=== PATIENT | female | born 1970 | race Asian ===

== ENCOUNTER 2017-01-04 02:09 | Emergency (ER) | payer SELFPAY ==
[2017-01-04] MEDS ORDERED: Sodium Chloride 0.9% 1,000 ML IV ONE (02:51)
[2017-01-04 03:07] LABS: % BASOPHILS 0.7 % (0.0-2.0); % EOSINOPHILS 0.9 % (0.0-5.0); % LYMPHOCYTES 30.2 % (20.0-50.0); % MONOCYTES 5.1 % (2.0-10.0); % NEUTROPHILS 63.1 % (40.0-80.0); HEMATOCRIT 37.7 % (41.0-60); HEMOGLOBIN 13.4 gm/dL (12-16); MEAN CELL VOLUME 85.9 fl (81-100); MEAN CORPUSCULAR HEMOGLOBIN 30.4 pg (27.0-31.0); MEAN CORPUSCULAR HGB CONC 35.4 pg (28.0-36.0); MEAN PLATELET VOLUME 7.4 fl; NEUTROPHILE ABSOLUTE 4.4 Th/cmm (1.8-8.0); PLATELET COUNT 255 Th/cmm (150-400); RED BLOOD COUNT 4.39 Mil/cmm (3.80-5.10); RED CELL DISTRIBUTION WIDTH 12.4 % (11.5-20.0); WHITE BLOOD COUNT 7.2 Th/cmm (4.8-10.8)
[2017-01-04 03:29] LABS: ALB/GLOB RATIO 1.5 (1.0-1.8); ALKALINE PHOSPHATASE 39 U/L (34-104); BILIRUBIN,TOTAL 0.6 mg/dL (0.3-1.0); BUN - UREA NITROGEN 16 mg/dL (7-25); CALCIUM SERUM 8.6 mg/dL (8.6-10.3); CARBON DIOXIDE 26.8 mEq/L (21.0-31.0); CHLORIDE 107 mEq/L (98-107); CREATININE - SERUM 0.8 mg/dL (0.6-1.2); GLUCOSE 129 mg/dL (70-105); POTASSIUM SERUM 3.8 mEq/L (3.5-5.1); SGOT 11 U/L (13-39); SGPT/ALT 8 U/L (7-52); SODIUM SERUM 139 mEq/L (136-145)
--- NOTE | 2017-01-07 14:34 | ER Physician Documentation ---
DATE OF SERVICE: 01/04/2017 HISTORY OF PRESENT ILLNESS: This is a 46-year-old [place] female patient who was brought to the Emergency Room by the paramedics, total three, one lady, two gentlemen brought the patient because she took some brownies with marijuana. A big piece of brownie and surely small, small bites she took. She does not say that she took the whole thing, but she took substantial amount of thing and she went to bed after which she started having some nauseous feeling, some vomiting, some abdominal pain, not feeling good. Paramedics were called. Blood pressure was found to be in the 60s. IV fluids were given. The patient was brought to the Emergency Room here. The patient off and on for the past 10 years when somebody gives her this marijuana containing brown she takes it. She does smoke marijuana cigarettes from time to time. She works in the house, taking care of her parents, and the financial remuneration is given by the government in taking care of her parents. Before that, she used to work in a dental office. The patient does not have any seizure activity. The patient was given IV fluids after bringing her to the Emergency Room. The blood pressure is close to 120/80 mmHg, normal sinus rhythm. No cardiac arrhythmias are noted. PAST MEDICAL HISTORY: Essentially positive for childhood diseases and appendicectomy scar, McBurney's point. One can clearly see the scar. Otherwise, no significant past history is present. PERSONAL HISTORY: She is not . She has no children. ALLERGIES: None known. CURRENT MEDICATIONS: None known. REVIEW OF SYSTEMS: EYES: No history of double vision, blurring, or blindness. CENTRAL NERVOUS SYSTEM: No history of TIA, stroke, encephalitis, or meningitis. No history of intracranial tumor. No history of any tremors. The patient never had any stroke. No history of any Parkinson's disease, and so far, marijuana brownies in the past or now has never caused her any severe significant illness except for this one that brought her to the hospital. She was advised about the negative side effects of marijuana smoking, and she was alone, and she is taking care of her parents. All were outlined to her that it would be risky for her to take those things. HEART: No history of any arrhythmias today or in the past, no history of any atrial fibrillation, atrial flutter or any supraventricular tachycardia, especially after taking marijuana. No history of any seizure activities, especially in light of her taking marijuana brownies should be kept in mind. The patient did not have any angina pectoris, myocardial infarction, and no history of any cardiac murmurs. No history of any ablation devices or pacemakers, etc., inserted in her. The patient was never admitted in the hospital. ENDOCRINE: No history of diabetes mellitus. No history of hypothyroidism or hyperthyroidism, pheochromocytoma, Granger's syndrome, etc. GENITOURINARY: No burning, no frequency. No dysuria. PHYSICAL EXAMINATION: GENERAL: On physical examination, the patient appears to be awake, alert, and oriented. She tries to keep her eyes closed because there is too much brightness over here. VITAL SIGNS: Normal. Temperature is normal. Conjunctivae are pink and sclerae white. HEENT: Normal. Peripheral pulses are normal. No meningeal signs are present. No evidence of any lymphadenopathy. No evidence of any jaundice, but looking into the slide, one cannot assure that the patient is jaundiced. CHEST: Reveals trachea to be central. Fairly good air entry in both lungs. No rales, rhonchi, or bronchial wheezing. ABDOMEN: Soft, benign, and negative, mild if any tenderness noted vaguely over the abdomen. Liver and spleen not enlarged. No fluid in abdominal cavity, no ascites, no evidence of any veins prominence, no history of any cirrhotic liver or findings of portal hypertension present. HEART: Normal heart sounds. Soft fourth heart sound is heard. Third heart sound is absent. No abnormal murmur, click, or rub. No diastolic murmur. No pericardial rub. CENTRAL NERVOUS SYSTEM: Normal. CLINICAL IMPRESSION: The patient became symptomatic with nausea, hypotension, lightheadedness, dizziness, disorientation, not feeling well all because of marijuana containing brownie ingestion. The patient was advised not to take this forever considering the side effects of marijuana and considering that she was alone and taking all these things. She was advised also not to smoke. She was advised not to drink too much alcohol also because she drinks alcohol still, or any other beer, white wine, or red wine, etc. Her other diagnosis includes previous history of childhood illness and previous history of appendicectomy in the past. The lab workup is ordered. I believe this should be normal. If anything abnormal, I would be notified. Currently, we will just give the patient if she has any pain, she will be given some Tylenol tablets and the patient will be getting IV fluids. Then, the patient could be discharged for home. JOB# [id number]
== END 2017-01-04 06:10 | disposition home or self-care (01) ==
LOC: ER 02:09
DX: R42 Dizziness and giddiness (principal)
CPT/HCPCS: 36415-UA; 80053-TC; 83735-TC; 85025-TC; J7030; Z7502